=== PATIENT | female | born 1960 | race Caucasian/White ===

== ENCOUNTER 2019-02-15 22:04 | Emergency (ER) | payer OTHER ==
[~2019-02-15] VITALS: Ht 172.7 cm; Wt 63.5 kg
[2019-02-15 22:13] VITALS: BP 106/72
--- NOTE | 2019-02-15 22:56 | NUR ---
SI W/ PLANS TO OD ON PILLS, DENIES HI, NO AUDITORY/VISUAL HALLUCINATIONS ADMITS TO SMOKING METH X LAST NIGHT. PT AAOX3, VSS. RR EVEN & UNLABORED. DENIES CP, SOB, DIZZINESS, N/V/D @ THIS TIME. SEEN & EVAL'D BY DR. CORRAL & WILL CONT TO MONITOR.
[2019-02-15 22:58] LABS: BASOPHILS # (AUTO) 0.1 /CMM (0.0-0.2); EOSINOPHILS % (AUTO) 3.3 % (0.0-6.0); HEMATOCRIT 34 % (33-45); HEMOGLOBIN 11.5 g/dL (11.5-14.8); LYMPHOCYTES # (AUTO) 2.6 /CMM (0.8-4.8); LYMPHOCYTES % (AUTO) 36.4 % (20.0-44.0); MEAN CORPUSCULAR HGB CONC 34 g/dl (31.0-36.0); MEAN CORPUSCULAR VOLUME 98 fL (82-100); MONOCYTES # (AUTO) 0.7 /CMM (0.1-1.30); MONOCYTES % (AUTO) 10.4 % (2.0-12.0); NEUTROPHILS # (AUTO) 3.5 /CMM (1.8-8.9); NEUTROPHILS % (AUTO) 48.9 % (43.0-81.0); PLATELET COUNT (AUTO) 266 /CMM (150-450); RED BLOOD CELL COUNT(AUTO) 3.45 MIL/uL (4.0-5.2); WHITE BLOOD COUNT (AUTO) 7.1 K/uL (4.3-11.0)
[2019-02-15] MEDS ORDERED: OMEP20CA11 PO (23:04)
[2019-02-15] MEDS ORDERED: ATOR10TA PO (23:04)
[2019-02-15] MEDS ORDERED: DULO20CA PO (23:04)
[2019-02-15] MEDS ORDERED: BUPR300T52 PO (23:04)
[2019-02-15] MEDS ORDERED: GABA600T12 PO (23:04)
[2019-02-15] MEDS ORDERED: ACYC200C PO (23:04)
[2019-02-15] MEDS ORDERED: ALBU8.5H8 IH (23:05)
[2019-02-15] MEDS ORDERED: FLUT9.9S NS (23:05)
[2019-02-15] MEDS ORDERED: IBUP-1955 PO (23:05)
[2019-02-15] MEDS ORDERED: FEXO180T94 PO (23:05)
[2019-02-15 23:10] LABS: CALCIUM, SERUM 8.3 mg/dL (8.5-10.1); CREATININE 0.7 mg/dL (0.6-1.3); POTASSIUM 3.1 mmol/L (3.5-5.1)
[2019-02-15 23:17] LABS: ALBUMIN 3.5 g/dL (3.4-5.0); BILIRUBIN,DIRECT 0.1 mg/dL (0.0-0.2); BILIRUBIN,TOTAL 0.4 mg/dL (0.2-1.0); SALICYLATE 3.4 mg/dL (2.8-20.0); TOTAL PROTEIN, SERUM 6.3 g/dL (6.4-8.2)
[2019-02-15 23:17] LABS: APPEARANCE,URINE Clear (CLEAR); BILIRUBIN,URINE Negative (NEGATIVE); BLOOD, URINE Small Ery/uL (NEGATIVE); COLOR,URINE Yellow (YELLOW); KETONES,URINE Negative (NEGATIVE); LEUKOCYTE ESTERASE ,URINE Negative (NEGATIVE); NITRITE, URINE Negative (NEGATIVE); PROTEIN,URINE Negative (NEGATIVE); UGLUCOSE Negative (NEGATIVE)
[2019-02-16 00:11] LABS: BACTERIA,URINE Rare /HPF (None Seen); SQUAMOUS EPITHELIAL CELL,UR Few /HPF (None Seen); WBC,URINE 0-2 /HPF (0-3)
[2019-02-16] MEDS ORDERED: POTASSIUM CHLORIDE 20 MEQ TAB.PRT.SR PO ONE ×3 (00:30→01:17)
--- NOTE | 2019-02-16 01:24 | NUR ---
PT MEDICATED ORDERED, RESTING COMFORTABLY IN BED, CALM & COOPERATIVE W/ RESP EVEN & UNLABORED, NAD NOTED. BED LOW TO GROUND FOR SAFETY.
--- NOTE | 2019-02-16 01:54 | NUR ---
[facility] CALLED FOR TRANSPORT. TRIP#[id number] ETA [id number]
--- NOTE | 2019-02-16 02:28 | NUR ---
REPORT GIVEN TO LORENA LIM FOR CONTINUATION OF CARE.
--- NOTE | 2019-02-16 03:54 | NUR ---
[facility] AT BEDSIDE FOR TRANSPORT TO [facility].
== END 2019-02-16 03:56 ==
LOC: ER 22:04
DX: R45.851 Suicidal ideations (principal); F19.10 Other psychoactive substance abuse, uncomplicated; E87.6 Hypokalemia; J45.909 Unspecified asthma, uncomplicated; Z98.890 Other specified postprocedural states; Z79.899 Other long term (current) drug therapy
CPT/HCPCS: 36415; 80048; 80076; 80305; 80307; 80329; 81001; 85025; 99285; G0480; 81000-TC